=== PATIENT | female | born 1975 | race Caucasian/White ===

== ENCOUNTER 2017-02-12 09:18 | Emergency (ER) | payer OTHER ==
[~2017-02-12] VITALS: Ht 160 cm; Wt 68.2 kg
[~2017-02-12 09:18] MED LIST: CLC100X PO; MTR600X PO; OMEG10007 PO; PRENTAB26 PO
[2017-02-12 09:25] VITALS: TEMP 36.8; Ht 160 cm; Wt 68.2 kg
[2017-02-12] MEDS ORDERED: ZPAK PO (09:49)
[2017-02-12] MEDS ORDERED: VALA1TAB31 PO (09:49)
[2017-02-12] MEDS ORDERED: TRIF1SOL3 OPL (09:49)
[2017-02-12] MEDS ORDERED: PROPARACAINE HCL 0.5% OP SOLN 15 ML BTL OP STA (09:54)
--- NOTE | 2017-02-12 10:03 | EMERGENCY ROOM VISIT NOTE ---
History Report prepared by Travis: Mauricio Sanchez Under the Supervision of: Dr. Amish Bishop M.D. First contact with patient: 09:37 Chief Complaint: RASH Stated Complaint: SHINGLES,SPREADING TO EYE History of Present Illness The patient is a 41 year old female who presents to the Emergency Room with complaints of a worsening rash that began three days ago. At this time, the rash began on her scalp and part of her eye. She went to Urgent Care and got diagnosed with Shingles. She was given Azithromycin, an antiviral medication, and eye drops and told to go to the [facility] [facility]. She was also told to go to the ER if it continues to spread. She noticed it has begun to spread onto her nasal area. She states that the area is tingling and itchy. She denies any trouble with vision. She does noticed some eye pain and intermittent light sensitivity. Source of History: patient Onset: 3 days ago Position: head, nose Symptom Intensity: moderate Quality: other (Shingles) Timing: constant Note: She is experiencing some eye pain and nasal area itching and tingling. She denies any trouble with her vision. Review of Systems See HPI for pertinent positives & negatives. A total of 10 systems reviewed and were otherwise negative. Past Medical & Surgical Medical Problems: (1) Anxiety (2) Contusion of great toe of right foot (3) Contusion of great toe of right foot (4) IBS (irritable bowel syndrome) (5) IBS (irritable bowel syndrome) Family History Patient reports no known family medical history. Social History Smoking Status: Former Smoker Alcohol Use: none Marital Status: Housing Status: lives with family Occupation Status: unemployed Current/Historical Medications Scheduled Azithromycin (Azithromycin), 1 TAB PO UD Trifluridine (Viroptic), 1 DROP OPL 5XD Valacyclovir Hcl (Valtrex), 1 GM PO TID Scheduled PRN Ibuprofen (Ibuprofen), 600 MG PO Q4H PRN for PAIN, MINOR, CRAMPING OR FEVER Allergies Coded Allergies: Penicillins (Verified Allergy, Unknown, ., 02/12/17) Physical Exam Vital Signs Date Time Temp Pulse Resp B/P (MAP) Pulse Ox O2 Delivery O2 Flow Rate FiO2 02/12/17 11:20 68 18 117/85 100 02/12/17 10:49 82 18 120/82 99 Room Air 02/12/17 09:25 36.8 86 18 141/83 100 Room Air Physical Exam GENERAL: Patient is a healthy-appearing well-nourished female HEAD: Normocephalic atraumatic. There is a zoster rash in the pattern of V1 on the patient's scalp. No evidence of herpes dermatitis. EYES: Ocular movements intact pupils equal and react to light. Normal visual acuity. NOSE: No Hernandez's sign. OROPHARYNX mucous membranes are moist no exudates present no erythema or edema present NECK: Supple no nuchal rigidity CHEST: Good equal expansion LUNGS: Clear and equal to auscultation CARDIAC: Normal S1 and S2 ABDOMEN: Soft nontender no guarding BACK: No CVA tenderness EXTREMITIES: No pain upon palpation normal muscle strength in all groups no clubbing cyanosis or edema NEURO: Patient is following commands and answering questions appropriately. Alert and oriented x3 Cranial Nerves 2-12 grossly intact Medical Decision & Procedures Medications Administered Medications (Trade) Dose Ordered Sig/Jenifer Route Start Time Stop Time Status Last Admin Dose Admin Proparacaine HCl (Alcaine 0.5% Oph Soln) 2 drops NOW STAT OP 02/12/17 09:54 02/12/17 09:55 DC 02/12/17 09:54 2 DROPS ED Course 0937: Past medical records reviewed. The patient was evaluated in room A3. A complete history and physical examination was performed. 0954: Ordered Proparacaine HCl 2 drops OP 1022: I discussed the patient's case with Dr. Hinds - Ophthalmology. Please see the consultation note for more information. 1145: Upon reexamination the patient is resting. I discussed results and treatment plan with the patient. She verbalizes agreement and understanding. The patient is ready for discharge. Medical Decision Differential diagnosis: Etiologies such as contact dermatitis, viral exanthem, urticaria, allergic reaction, Stein-Josh syndrome, toxic epidermal necrolysis, erythema multiforme, cellulitis, scabies, HSV, varicella, zoster, eczema, staph scalded skin syndrome, fungal infection, as well as others were entertained. Medication Reconciliation: I attest that I have personally reviewed the patient' s current medication list Blood Pressure Screening: Patient was found to have normal blood pressure on screening and does not require follow up. This is a 41-year-old female who presents emergency department complaining of possible spread of zoster into her eye. I will note that the patient feels that her eyes are dry bilaterally however is having no pain or sensitivity to light. She is early on Valtrex as well as eyedrops that were placed by her project management. Slit lamp exam does not show any dendritic involvement of the eye. This along with her normal visual acuity in the emergency department I feel that the patient can be safely discharged home. I did discuss the case with Dr. Bartlett who agreed to see the patient on Tuesday. Patient was in agreement with the treatment plan. Consults Time Called: 1020 Consulting Physician: Dr. Hinds - Ophthalmolgy Returned Call: 1022 We discussed the patient's case. He believes the patient can be discharged and wishes for the patient to follow up with him in his office. Impression Primary Impression: Zoster Scribe Attestation The scribe's documentation has been prepared under my direction and personally reviewed by me in its entirety. I confirm that the note above accurately reflects all work, treatment, procedures, and medical decision making performed by me. Departure Information Dispostion Home / Self-Care Referrals Ted Lemos M.D.([facility]) (PCP) Huy Hinds M.D. Forms HOME CARE DOCUMENTATION FORM, IMPORTANT VISIT INFORMATION, WORK / SCHOOL INSTRUCTIONS Patient Instructions STACIE Wolf, My [facility] Additional Instructions Follow up with DR Hinds's office You were found to have an elevated blood pressure today (>120 sytolic or >90 diastolic). Per medicare guidelines, you need to follow up with this blood pressure screening with your Primary Care Physician (PCP). For a new PCP call [phone]. Continue meds as previously prescribed You have been examined and treated today on an emergency basis only. This is not a substitute for, or an effort to provide, complete comprehensive medical care. It is impossible to recognize and treat all injuries or illnesses in a single emergency department visit. It is therefore important that you follow up closely with Dr Lemos. Call as soon as possible for an appointment. Thank you for your time and consideration. I look forward to speaking with you again soon. Please don't hesitate to call us if you have any questions. Problem Qualifiers Primary Impression: Zoster Herpes zoster complications: without complications Qualified Codes: B02.9 - Zoster without complications
[2017-02-12 11:20] VITALS: BP 117/85; PULSE 68; O2SAT 100
== END 2017-02-12 11:31 | disposition home or self-care (01) ==
LOC: C.EDB 09:19 → C.EDA 11:31
DX: B02.9 Zoster without complications (principal); F41.9 Anxiety disorder, unspecified; K58.9 Irritable bowel syndrome, unspecified; Z87.891 Personal history of nicotine dependence